=== PATIENT | male | born 1955 | race Caucasian/White ===

== ENCOUNTER 2018-08-23 04:56 | Emergency (ER) | payer OTHER ==
--- NOTE | ~2018-08-23 | EKG ---
[facility], [place] ELECTROCARDIOGRAM REPORT NAME: BALDEV BLACK UNIT #: [id number] ROOM: DOCTOR: EPIPHANY DRAFT REPORT BIRTHDATE: [birth year] [facility] Test Date: 2018-08-23 Test Time: 05:01:58 Pat Name: BALDEV BLACK Department: ER Room: Gender: M Iron Assorter: Alea Jules : 1955 Requested By: FELICIA MILLS Order Number: [id number] Reading MD: Telly Duran MD Measurements Intervals [place] Rate: 73 P: 70 AL: 175 QRS: 92 QRSD: 106 T: 71 QT: 356 QTc: 393 Interpretive Statements Sinus rhythm Ventricular premature complex Sinus pause Inferior infarct, acute (RCA) Assuming this ECG is recorded with right chest leads, the patient does have criteria for an acute right ventricular infarction Electronically Signed On 08-23-2018 18:21:52 PST by Telly Duran MD CM:EKGRPT:ELECTROCARDIOGRAM REPORT [id number] 1821 FELICIA FERNANDES DRAFT REPORT FELICIA MILLS DO
--- NOTE | ~2018-08-23 | EKG ---
[place], [place] ELECTROCARDIOGRAM REPORT NAME: BALDEV BLACK UNIT #: [id number] ROOM: DOCTOR: EPIPHANY DRAFT REPORT BIRTHDATE: [birth year] [facility] Test Date: 2018-08-23 Test Time: 04:57:34 Pat Name: BALDEV BLACK Department: ER Room: Gender: Cycle Counter: Alea Jules : 1955 Requested By: FELICIA MILLS Order Number: [id number] Reading MD: Telly Duran MD Measurements Intervals [place] Rate: 84 P: 70 [place]: 189 QRS: 94 QRSD: 114 T: 66 QT: 379 QTc: 449 Interpretive Statements Sinus rhythm Frequent multiform ventricular premature complexes Inferior infarct, acute (RCA) Probable RV involvement, suggest recording right precordial leads Electronically Signed On 08-23-2018 18:19:57 PST by Telly Duran MD CM:EKGRPT:ELECTROCARDIOGRAM REPORT [id number] 1819 FELICIA FERNANDES DRAFT REPORT FELICIA MILLS DO
[2018-08-23 05:11] LABS: HEMATOCRIT 46.7 % (42.0-52.0); HEMOGLOBIN 16.2 g/dl (14.0-18.0); MEAN CORPUSCULAR HGB 31.2 pg (27.0-31.0); MEAN CORPUSCULAR HGB CONC 34.7 g/dl (33.0-37.0); MEAN PLATELET VOLUME 10.8 fl (9.6-12.3); PLATELET COUNT AUTOMATED 248 10*3/uL (130-400); RED BLOOD COUNT 5.19 10*6/uL (4.50-5.90); RED CELL DISTRI WIDTH 12.8 % (0-14.5); WHITE BLOOD COUNT 14.9 10*3/uL (4.8-10.8)
[2018-08-23 05:24] LABS: ACT PARTIAL THROMBO TIME 23.1 SECONDS (20.8-31.5); INTERNATIONAL NORM RATIO 0.9 (2.0-3.5)
[2018-08-23 05:30] LABS: ALBUMIN 3.9 gm/dl (3.1-4.5); BUN 14 mg/dl (7-24); CHLORIDE 105 mmol/L (98-107); CREATININE 1.09 mg/dL (0.70-1.30); POTASSIUM 3.6 mmol/L (3.5-5.1); SGOT/AST 17 IU/L (3-35); SGPT/ALT 32 U/L (12-78); SODIUM 140 mmol/L (136-145); TOTAL PROTEIN 7.5 gm/dL (6.4-8.2)
[2018-08-23 05:33] LABS: ALKALINE PHOSPHATASE 86 U/L (45-117)
[2018-08-23 05:35] LABS: BASOPHILS 1 % (0-1); TOTAL CELLS COUNTED 100 #CELLS
[2018-08-23 05:36] LABS: PLATELET SUFFICIENCY NORMAL (NORMAL)
[2018-08-23 05:37] LABS: BURR CELLS FEW
[2018-08-23 05:38] LABS: TROPONIN I 0.145 ng/ml (<0.045)
== END 2018-08-23 06:22 | disposition short-term general hospital (02) ==
LOC: ED 04:56
PROVIDERS: Emergency Medicine
DX: I21.3 ST elevation (STEMI) myocardial infarction of unspecified site (principal); I25.2 Old myocardial infarction